=== PATIENT | female | born 1955 | race Two or more races ===

== ENCOUNTER 2021-11-08 08:44 | Emergency (ER) | payer OTHER, MEDICAID ==
[~2021-11-08] VITALS: Ht 167.6 cm; Wt 81.6 kg
[2021-11-08] MEDS ORDERED: SODIUM CHLORIDE 0.9% 1,000 ML IV ONE (09:45)
[2021-11-08 10:31] LABS: Urine Bacteria FEW /hpf (None Seen); Urine Blood TRACE /uL (Negative); Urine Specific Gravity 1.015 (1.001-1.035); Urine WBC 2 /hpf (0 - 5)
[2021-11-08 11:11] LABS: Basophils # (auto) 0 10 ^3/uL (0-0.2); Eosinophils # (auto) 0 10 ^3/uL (0-0.8); Monocytes # (auto) 0.6 10 ^3/uL (0-1.3)
[2021-11-08 11:16] LABS: Basophils % (auto) 0.3 % (0.0-2.0); Eosinophils % (auto) 0.2 % (0.0-7.0); Hematocrit 31.8 % (36.0-46.0); Lymphocytes # (auto) 0.9 10 ^3/uL (0.4-5.4); Mean Corpuscular Hemoglobin 34.8 pg (28.0-32.0); Mean Corpuscular Hgb Conc. 34.4 g/dL (32.0-36.0); Neutrophils % (auto) 79.5 % (37.0-80.0); Red Blood Cells 3.15 10^6/uL (4.0-5.20); Red Cell Distribution Width 14.2 % (11.8-14.3); White Blood Cell 7.6 10^3/uL (4.4-10.8)
[2021-11-08 11:34] LABS: Potassium 4.4 mmol/L (3.5-5.1)
[2021-11-08 11:39] LABS: INR 1.05 (0.9-1.15); Partial Thromboplastin Time 24.2 sec (23.6-33.0)
[2021-11-08 11:44] LABS: Albumin 2.9 g/dL (3.4-5.0); BUN/Creatinine Ratio 29.9; Bilirubin, Total 0.4 mg/dL (0.2-1.0); Calcium 8.4 mg/dL (8.5-10.1); Total Protein 6.7 g/dL (6.4-8.2)
[2021-11-08] MEDS ORDERED: PANT40TA2 PO (13:35)
[2021-11-08] MEDS ORDERED: SULF400T11 PO (13:36)
[2021-11-08 16:40] VITALS: BP 143/98
== END 2021-11-08 16:40 | disposition short-term general hospital (02) ==
LOC: EDBD 08:44 → ER 08:44
DX: K86.1 Other chronic pancreatitis (principal); N39.0 Urinary tract infection, site not specified; K57.90 Diverticulosis of intestine, part unspecified, without perforation or abscess without bleeding; I10 Essential (primary) hypertension; Z79.899 Other long term (current) drug therapy; Z20.822 Contact with and (suspected) exposure to COVID-19
CPT/HCPCS: 36415; 71045; 74176; 80053; 81001; 84484; 85025; 85610; 85730; 86850; 86900; 86901; 87426; 93005; 96360; 96361; 99285; J7030